=== PATIENT | female | born 1970 | race Caucasian/White ===

== ENCOUNTER 2018-05-07 11:56 | Emergency (ER) | payer SELFPAY ==
[~2018-05-07] VITALS: Ht 177.8 cm; Wt 68.0 kg
[2018-05-07 11:57] VITALS: BP 135/78
[2018-05-07] MEDS ORDERED: KETOROLAC TROMETHAMINE INJ 60 MG/2 ML VIAL IM ONE (12:30)
[2018-05-07] MEDS ORDERED: ACETAMINOPHEN ES 500 MG TABLET PO ONE (12:30)
[2018-05-07] MEDS ORDERED: KETOROLAC TROMETHAMINE INJ 30 MG/ML VIAL ONE (12:41)
[2018-05-07] MEDS ORDERED: ACETAMINOPHEN ES 500 MG TABLET ONE (12:41)
--- NOTE | 2018-05-07 12:50 | NUR ---
PT SIGNED WAIVER FOR XRAY AND TORADOL.
--- NOTE | 2018-05-07 12:50 | NUR ---
ANGELIC AT BS.
== END 2018-05-07 13:31 | disposition home or self-care (01) ==
LOC: ER 11:57
DX: T14.8XXA Other injury of unspecified body region, initial encounter (principal); R06.02 Shortness of breath; V49.59XA Passenger injured in collision with other motor vehicles in traffic accident, initial encounter; Y93.89 Activity, other specified; Y92.413 State road as the place of occurrence of the external cause; Y99.8 Other external cause status
CPT/HCPCS: 71045; 96372; 99283; A4606; J1885; Z7610